=== PATIENT | male | born 1990 | race Caucasian/White ===

== ENCOUNTER 2018-09-04 17:43 | Emergency (ER) | payer BC ==
[~2018-09-04] VITALS: Ht 188 cm; Wt 108.9 kg
[~2018-09-04 17:43] MED LIST: CHLO15MO2 PO; HYDR-3164 PO
[2018-09-04 18:18] VITALS: BP 162/96
--- NOTE | 2018-09-04 19:03 | PHYS DOC ---
Past Medical History Past Medical History: No Pertinent History (ELIZABETH BOLDEN APRN) Past Surgical History: Appendectomy Additional Past Surgical Histo: AXILLARY DISECTION,LYMPH NODE BIOPSY (ELIZABETH BLODEN APRN) Alcohol Use: Occasionally Drug Use: None (ELIZABETH BOLDEN APRN) Adult General Chief Complaint Chief Complaint: SKIN RASH/ABSCESS [facility] HPI Patient is a 28 year old male, accompanied by his significant other, who presents to the emergency Department today with complaints of a rash all over that is not itchy and a fever. Patient states the symptoms began yesterday. He denies any pain at this time, he reports that he has had a mild cough and that he smokes about a pack of cigarettes a day. He denies any medical history, reports prior surgical history as documented. ROS Patient denies any ear pain, sore throat, nasal congestion, shortness of breath, wheezing, nausea, vomiting, diarrhea, abdominal pain, back pain, or difficulty swallowing.All other ROS is neg unless otherwise noted in HPI. (ELIZABETH BOLDEN APRN) Review of Systems Review of Systems See AboveConstitutional: Denies fever or chills [] Eyes: Denies change in visual acuity, redness, or eye pain [] HENT: Denies nasal congestion or sore throat [] Respiratory: Denies cough or shortness of breath [] Cardiovascular: No additional information not addressed in HPI [] GI: Denies abdominal pain, nausea, vomiting, bloody stools or diarrhea [] : Denies dysuria or hematuria [] Musculoskeletal: Denies back pain or joint pain [] Integument: Denies rash or skin lesions [] Neurologic: Denies headache, focal weakness or sensory changes [] Endocrine: Denies polyuria or polydipsia [] All other systems were reviewed and found to be within normal limits, except as documented in this note. (ELIZABETH BOLDEN APRN) Current Medications Current Medications Current Medications Medications (Trade) Dose Ordered Sig/Shashank Start Time Stop Time Status Last Admin Dose Admin Ibuprofen (Motrin) 600 mg 1X ONCE 09/04/18 19:15 09/04/18 19:15 DC 09/04/18 19:13 600 MG (NIKITA MORA DO) Allergies Allergies Allergies Coded Allergies Type Severity Reaction Last Updated Verified No Known Drug Allergies 05/06/18 No (NIKITA MORA DO) Physical Exam Physical Exam See Above Constitutional: Well developed, well nourished, no acute distress, non-toxic appearance. [] HENT: Normocephalic, atraumatic, bilateral external ears normal, bilateral TMs normal, oropharynx moist, mild erythema of posterior pharynx, no oral exudates, nose normal. [] Eyes: PERRLA, conjunctiva normal, no discharge. [] Neck: Normal range of motion, no tenderness, supple, no stridor. [] Cardiovascular:Heart rate regular rhythm, no murmur [] Lungs & Thorax: Bilateral breath sounds clear to auscultation [] Skin: Warm, dry; generalized maculopapular rash all over consistent with viral exanthem Extremities: No tenderness, no cyanosis, no clubbing, ROM intact, no edema. [] Neurologic: Alert and oriented X 3, no focal deficits noted. [] Psychologic: Affect normal, judgement normal, mood normal. [] (ELIZABETH BOLDEN APRN) Current Patient Data Vital Signs Vital Signs Date Time Temp Pulse Resp B/P (MAP) Pulse Ox O2 Delivery O2 Flow Rate FiO2 09/04/18 18:18 102.6 100 20 162/96 (118) 98 Room Air 102.6 (NIKITA MORA DO) EKG EKG [] (ELIZABETH BOLDEN APRN) Radiology/Procedures Radiology/Procedures Rapid strep negative[] (ELIZABETH BOLDEN APRN) Course & Med Decision Making Course & Med Decision Making Pertinent Labs and Imaging studies reviewed. (See chart for details) dx: Fever, viral exanthem Patient was given 800 mg of ibuprofen in the emergency department. Advised patient to continue alternating Tylenol and ibuprofen as needed for fever. May also take Benadryl. Follow-up with primary care doctor if symptoms persist, return to the ER symptoms worsen. Patient verbalized an understanding of home care, medications, follow-up, and return to ED instructions and was in agreement with the plan of care. [] (ELIZABETH BOLDEN APRN) Dragon Disclaimer Dragon Disclaimer This electronic medical record was generated, in whole or in part, using a voice recognition dictation system. (ELIZABETH BOLDEN APRN) Departure Departure Impression: Primary Impression: Viral exanthem, unspecified Additional Impression: Fever Disposition: HOME, SELF-CARE Condition: STABLE Referrals: NO PCP (PCP) Patient Instructions: Fever, Adult, [id number], Viral Exanthems, Adult, [id number] Additional Instructions: Alternate Tylenol and ibuprofen as needed for fever. Drink plenty of fluids. Follow-up with your primary care doctor if symptoms persist, return to the ER if symptoms worsen. Attending Signature Attending Signature I have reviewed the PA/RESIDENT CARE MANAGER RN's note and plan of care. I was available for consultation as needed during the patient's visit in the emergency department. I agree with the clinical impression, plan, and disposition. (NIKITA MORA DO) Problem Qualifiers Additional Impression: Fever Fever type: unspecified Qualified Codes: R50.9 - Fever, unspecified ELIZABETH BOLDEN APRN Sep 04, 2018 19:03 NIKITA MORA DO Sep 05, 2018 04:35
[2018-09-04] MEDS ORDERED: IBUPROFEN 400 MG TABLET. PO ONE (19:15)
[2018-09-05] MEDS ORDERED: DOXY100T PO (18:43)
== END 2018-09-04 19:14 | disposition home or self-care (01) ==
LOC: ER 17:43
DX: B09 Unspecified viral infection characterized by skin and mucous membrane lesions (principal); R05 Cough; F17.210 Nicotine dependence, cigarettes, uncomplicated
CPT/HCPCS: 87070; 87880; 99283

== ENCOUNTER 2018-09-05 16:12 | Emergency (ER) | payer BC ==
[~2018-09-05] VITALS: Ht 188 cm; Wt 113.4 kg
[2018-09-05 16:40] VITALS: BP 134/84
[2018-09-05] MEDS ORDERED: IV NORMAL SALINE 1000ML BAG 1,000 ML IV ONE (17:30)
[2018-09-05] MEDS ORDERED: KETOROLAC 15 MG/ML VIAL. IV ONE (17:30)
[2018-09-05 18:02] LABS: BASO % 1 % (0-3); EOS # 0.2 x10^3/uL (0.0-0.7); EOS % 5 % (0-3); HEMATOCRIT 41.7 % (39.0-53.0); HEMOGLOBIN 14.6 g/dL (13.0-17.5); LYMPH # 1.4 x10^3/uL (1.0-4.8); LYMPH % 27 % (24-48); MEAN CORPUSCULAR HEMOGLOBIN 32 pg (25-35); MEAN CORPUSCULAR HGB CONC 35 g/dL (31-37); MEAN CORPUSCULAR VOLUME 91 fL (79-100); MONO # 0.3 x10^3/uL (0.0-1.1); MONO % 6 % (0-9); NEUT # 3.2 x10^3/uL (1.8-7.7); NEUT % 62 % (31-73); PLATELET COUNT 127 x10^3/uL (140-400); RED BLOOD COUNT 4.58 x10^6/uL (4.30-5.70); RED CELL DISTRIBUTION WIDTH 12.7 % (11.5-14.5); WHITE BLOOD COUNT 5.2 x10^3/uL (4.0-11.0)
[2018-09-05 18:12] LABS: CALCIUM 9.1 mg/dL (8.5-10.1); CREATININE 1.1 mg/dL (0.7-1.3); GFR 79.7; POTASSIUM 3.8 mmol/L (3.5-5.1)
[2018-09-05] MEDS ORDERED: DOXY100T PO (18:43)
--- NOTE | 2018-09-05 18:44 | PHYS DOC ---
Past Medical History Past Medical History: No Pertinent History Past Surgical History: Appendectomy Additional Past Surgical Histo: AXILLARY DISECTION,LYMPH NODE BIOPSY Alcohol Use: Occasionally Drug Use: None Adult General Chief Complaint Chief Complaint: SKIN PROBLEM HPI HPI Patient is a 28 year old [f__sex] who presents with [] Review of Systems Review of Systems Constitutional: Denies fever or chills [] Eyes: Denies change in visual acuity, redness, or eye pain [] HENT: Denies nasal congestion or sore throat [] Respiratory: Denies cough or shortness of breath [] Cardiovascular: No additional information not addressed in HPI [] GI: Denies abdominal pain, nausea, vomiting, bloody stools or diarrhea [] : Denies dysuria or hematuria [] Musculoskeletal: Denies back pain or joint pain [] Integument: Denies rash or skin lesions [] Neurologic: Denies headache, focal weakness or sensory changes [] Endocrine: Denies polyuria or polydipsia [] All other systems were reviewed and found to be within normal limits, except as documented in this note. Current Medications Current Medications Current Medications Medications (Trade) Dose Ordered Sig/Shashank Start Time Stop Time Status Last Admin Dose Admin Ketorolac Tromethamine (Toradol 15mg Vial) 15 mg 1X ONCE 09/05/18 17:30 09/05/18 17:31 DC 09/05/18 17:52 15 MG Sodium Chloride 1,000 ml @ 1,000 mls/hr 1X ONCE 09/05/18 17:30 09/05/18 18:29 DC 09/05/18 17:53 1,000 MLS/HR Allergies Allergies Allergies Coded Allergies Type Severity Reaction Last Updated Verified No Known Drug Allergies 05/06/18 No Physical Exam Physical Exam Constitutional: Well developed, well nourished, no acute distress, non-toxic appearance. [] HENT: Normocephalic, atraumatic, bilateral external ears normal, oropharynx moist, no oral exudates, nose normal. [] Eyes: PERRLA, EOMI, conjunctiva normal, no discharge. [] Neck: Normal range of motion, no tenderness, supple, no stridor. [] Cardiovascular:Heart rate regular rhythm, no murmur [] Lungs & Thorax: Bilateral breath sounds clear to auscultation [] Abdomen: Bowel sounds normal, soft, no tenderness, no masses, no pulsatile masses. [] Skin: Warm, dry, no erythema, no rash. [] Back: No tenderness, no CVA tenderness. [] Extremities: No tenderness, no cyanosis, no clubbing, ROM intact, no edema. [] Neurologic: Alert and oriented X 3, normal motor function, normal sensory function, no focal deficits noted. [] Psychologic: Affect normal, judgement normal, mood normal. [] Current Patient Data Vital Signs Vital Signs Date Time Temp Pulse Resp B/P (MAP) Pulse Ox O2 Delivery O2 Flow Rate FiO2 09/05/18 16:40 100.8 88 16 134/84 (101) 96 Room Air 100.8 Lab Values Laboratory Tests Test 09/05/18 17:50 White Blood Count 5.2 x10^3/uL (4.0-11.0) Red Blood Count 4.58 x10^6/uL (4.30-5.70) Hemoglobin 14.6 g/dL (13.0-17.5) Hematocrit 41.7 % (39.0-53.0) Mean Corpuscular Volume 91 fL (79-100) Mean Corpuscular Hemoglobin 32 pg (25-35) Mean Corpuscular Hemoglobin Concent 35 g/dL (31-37) Red Cell Distribution Width 12.7 % (11.5-14.5) Platelet Count 127 x10^3/uL (140-400) L Neutrophils (%) (Auto) 62 % (31-73) Lymphocytes (%) (Auto) 27 % (24-48) Monocytes (%) (Auto) 6 % (0-9) Eosinophils (%) (Auto) 5 % (0-3) H Basophils (%) (Auto) 1 % (0-3) Neutrophils # (Auto) 3.2 x10^3/uL (1.8-7.7) Lymphocytes # (Auto) 1.4 x10^3/uL (1.0-4.8) Monocytes # (Auto) 0.3 x10^3/uL (0.0-1.1) Eosinophils # (Auto) 0.2 x10^3/uL (0.0-0.7) Basophils # (Auto) 0.0 x10^3/uL (0.0-0.2) Sodium Level 136 mmol/L (136-145) Potassium Level 3.8 mmol/L (3.5-5.1) Chloride Level 99 mmol/L (98-107) Carbon Dioxide Level 24 mmol/L (21-32) Anion Gap 13 (6-14) Blood Urea Nitrogen 10 mg/dL (8-26) Creatinine 1.1 mg/dL (0.7-1.3) Estimated GFR (Cockcroft-Gault) 79.7 Glucose Level 93 mg/dL (70-99) Calcium Level 9.1 mg/dL (8.5-10.1) Laboratory Tests 09/05/18 17:50 Laboratory Tests 09/05/18 17:50 EKG EKG [] Radiology/Procedures Radiology/Procedures [] Course & Med Decision Making Course & Med Decision Making Pertinent Labs and Imaging studies reviewed. (See chart for details) [] Dragon Disclaimer Dragon Disclaimer This electronic medical record was generated, in whole or in part, using a voice recognition dictation system. Departure Departure Impression: Primary Impression: Fever Additional Impression: Viral exanthem, unspecified Disposition: HOME, SELF-CARE Condition: STABLE Referrals: NO PCP (PCP) Patient Instructions: Fever, Adult, [id number], Viral Exanthems, Adult, [id number] Additional Instructions: Continue to alternate tylenol and ibuprofen as needed for pain/fever. Fill the prescription and use as directed. Follow up with your primary care doctor in 1-2 days, return to the ER if symptoms worsen. Scripts Doxycycline Hyclate (DOXYCYCLINE HYCLATE) 100 Mg Tablet 1 TAB PO BID, #20 TAB 0 Refills Prov: ELIZABETH BOLDEN [employer] 09/05/18 Problem Qualifiers Primary Impression: Fever Fever type: unspecified Qualified Codes: R50.9 - Fever, unspecified ELIZABETH BOLDEN [employer] Sep 05, 2018 18:44
== END 2018-09-05 18:53 | disposition home or self-care (01) ==
LOC: ER 16:12
DX: B09 Unspecified viral infection characterized by skin and mucous membrane lesions (principal)
CPT/HCPCS: 36415; 80048; 85025; 96374; 99284; J1885; J7030